=== PATIENT | male | born 1990 | race African-American/Black ===

== ENCOUNTER 2019-12-22 15:49 | Emergency (ER) | payer OTHER, SELFPAY ==
--- NOTE | 2019-12-22 | CT_ITS ---
EXAMINATION: CT ABDOMEN AND PELVIS WITH CONTRAST CLINICAL INFORMATION: Abdominal pain COMPARISON: None TECHNIQUE: Multidetector volumetric images were obtained from the superior aspect of the liver through the pubic symphysis following administration 85 mL of Omnipaque 350 intravenous contrast. Sagittal and coronal reformatted images were obtained on the technologist's workstation. Oral contrast: No This CT examination was performed using dose optimization techniques as appropriate, variously including the following: *Automated exposure control *Adjustment of mA and/or kV according to patient size (this includes techniques or standardized protocols for targeted exams where dose is matched to indication/reason for exam; i.e. extremities or head) *Use of iterative reconstruction technique DLP: 650 mGy-cm FINDINGS: LUNG BASES: The visualized lung bases are unremarkable. LIVER, GALLBLADDER, AND BILIARY TREE: The liver is normal in size, shape, and attenuation. No focal hepatic lesion or biliary ductal dilatation is present. The gallbladder is unremarkable with no evidence of radiopaque gallstones, gallbladder wall thickening, or obvious pericholecystic inflammatory changes. PANCREAS: Unremarkable. SPLEEN: Unremarkable. ADRENAL GLANDS: Unremarkable. KIDNEYS AND URETERS: The kidneys are normal in size, shape, and attenuation. No hydronephrosis, hydroureter, or calculi seen. No perinephric stranding. BLADDER: Unremarkable. GASTROINTESTINAL TRACT: The stomach and small bowel are nondilated. The appendix is not seen but there are no right lower quadrant inflammatory changes. Scattered colonic diverticulosis. No evidence of colitis or diverticulitis. ABDOMINAL WALL: No significant hernia is appreciated. LYMPH NODES: Normal. VASCULAR: Unremarkable. PELVIC VISCERA: The prostate and seminal vesicles are unremarkable. OSSEOUS STRUCTURES: Mild broad-based disc bulge at L5-S1. No acute or suspicious osseous abnormality. IMPRESSION: No acute CT findings.
[2019-12-22 16:32] VITALS: BP 125/74; PULSE 94; RESP 14; TEMP 37; O2SAT 98
[2019-12-22 17:10] VITALS: BP 102/85; PULSE 96; RESP 16; TEMP 37; O2SAT 98; BMI 31.9
--- NOTE | 2019-12-22 18:00 | ED.ABDPAIN ---
HPI - Abdominal Pain General Chief Complaint: Abdominal Pain Stated Complaint: back pain Time Seen by Provider: 12/22/19 17:46 Source: patient Limitations: no limitations History of Present Illness HPI narrative: patient is a 29-year-old male presents today with having abdominal pain mainly over the lower abdomen. There is no bowel urinary incontinence. There is no pain on urination. There is no penile discharge. No fever no chills no coughing or congestion or upper respiratory symptoms. The pain is dull in nature. It has been ongoing for months. There is no specific triggers. Patient denies any change in bowel movements. No vomiting. He rates it as 5/10. nothing really makes it better Related Data Previous Rx's Medication Instructions Recorded ondansetron HCl [Zofran] 4 mg PO Q8H PRN #7 tab 12/22/19 Allergies Allergy/AdvReac Type Severity Reaction Status Date / Time No Known Allergies Allergy Unverified 12/08/19 17:46 Review of Systems Review of Systems Yes all other systems are reviewed and are negative Eyes: Reports as per HPI Reports system reviewed and no additional complaints, except as documented Cardiovascular: Reports as per HPI Respiratory: Reports as per HPI Gastrointestinal: Reports as per HPI Genitourinary: Reports no additional male genitourinary complaints Musculoskeletal: Reports no additional musculoskeletal complaints Skin/Breast: Reports as per HPI Reports system reviewed and no additional complaints, except as documented Physical Exam Vital Signs and I&O and Narrative: Vital Signs and I&O: Vital Signs Temp 98.6 F 12/22/19 17:10 Pulse 78 12/22/19 19:09 Resp 16 12/22/19 19:09 BP 125/78 12/22/19 19:09 Pulse Ox 100 12/22/19 19:09 Intake & Output 12/22/19 12/22/19 12/23/19 06:59 18:59 06:59 Weight 95.254 kg Body Mass Index 31.9 Const: General: cooperative Orientation/consciousness: oriented to person HENMT: Head: Yes normal to inspection Ears: hearing grossly normal bilaterally General nose exam: Normal external nose present Face and sinus: Yes normal facial exam Mouth: Normal oral and palatal mucosa present Eyes: General: appearance normal, both eyes and all related structures Neck: Other: no JVD noted. Neck: Yes normal visual inspection Chest: Chest palpation & inspection: normal inspection of the chest Resp: Effort & Inspection: normal respiratory effort, not labored, no nasal flaring, no paradoxical thoraco-abdom movements and no respiratory distress Auscultation: clear to auscultation bilaterally GI: Inspection: Yes normal to inspection : General: Yes no CVA tenderness Back/Spine/Pelvis: Back: no CVA tenderness Skin: General skin exam: no rashes or lesions noted Neuro: General: oriented to person Extrem: General: Yes normal to inspection Right upper extremity: normal to inspection Left upper extremity: normal to inspection Psych: Appearance: grossly normal MDM - Abdominal Pain MDM Narrative Medical decision making narrative: Patient well appearing. Labs unremarkable. CT scan of the abdomen pelvis showed no evidence of abscess, perforation, obstruction. No evidence for appendicitis. Patient's abdominal exam is soft nontender. Repeat abdominal exam was soft nontender. Will discharge patient home close follow-up on an outpatient basis. Differential Diagnosis Differential diagnosis: Likely aortic dissection, acute appendicitis, bowel perforation, calculus of kidney and constipation Medical Records Attestation: I reviewed the patient's medical records. Lab Data Attestation: I reviewed the patient's lab results. Result diagrams: 12/22/19 18:33 12/22/19 18:33 Labs: Lab Results 12/22/19 12/22/19 12/22/19 Range/Units 18:33 18:33 18:33 WBC 5.2 (4.8-10.8) X10*3/uL RBC 5.40 (4.60-5.80) X10*6/uL Hgb 15.4 (14.0-18.0) g/dl Hct 46.3 (42-52) % MCV 85.7 (80-98) fL MCH 28.5 (27.0-33.0) pg MCHC 33.3 (31.0-36.0) g/dl RDW 12.6 (11.0-16.0) % Plt Count 294 (160-400) X10*3/uL MPV 9.5 (9.4-12.4) fL Immature Gran % (Auto) 0.2 (0.0-0.4) % Neut % (Auto) 43.8 L (45-73) % Lymph % (Auto) 45.7 H (20-40) % [place] % (Auto) 7.2 (2-11) % Eos % (Auto) 2.7 (0-4) % Baso % (Auto) 0.4 (0-2) % Neut # (Auto) 2.3 (2.0-8.3) X10*3/uL Lymph # (Auto) 2.4 (1.2-4.9) X10*3/uL [place] # (Auto) 0.4 (0.1-1.2) X10*3/uL Eos # (Auto) 0.1 (0.0-0.4) X10*3/uL Baso # (Auto) 0.0 (0.0-0.2) X10*3/uL Abs Immat Gran (auto) 0.01 (0.00-0.03) X10*3/uL Absolute Nucleated RBC 0.000 (0.0-0.012) X10*3/uL Nucleated RBC % (auto) 0.0 (0.0-0.2) /100WBC Hold Blue Top SEE NOTE Sodium 140 (135-145) mmol/L Potassium 4.1 (3.3-5.1) mmol/l Chloride 105 (96-108) mmol/L Carbon Dioxide 27 (22-29) mmol/L Anion Gap 12 (12-20) BUN 12 (9-16) mg/dL Creatinine 1.08 (0.5-1.4) mg/dL Estim Creat Clear Calc 111.9 Estimated GFR > 60 Random Glucose 92 (60-115) mg/dL Calcium 9.2 (8.4-10.2) mg/dL Total Bilirubin 0.3 (0.0-1.0) mg/dL Direct Bilirubin (0.0-0.5) mg/dL AST 25 (5-37) U/L ALT 41 H (0-40) U/L Alkaline Phosphatase 107 (39-117) U/L Total Protein 7.5 (6.5-8.0) g/dL Albumin 4.4 (3.5-5.0) g/dL 12/22/19 Range/Units 18:33 WBC (4.8-10.8) X10*3/uL RBC (4.60-5.80) X10*6/uL Hgb (14.0-18.0) g/dl Hct (42-52) % MCV (80-98) fL MCH (27.0-33.0) pg MCHC (31.0-36.0) g/dl RDW (11.0-16.0) % Plt Count (160-400) X10*3/uL MPV (9.4-12.4) fL Immature Gran % (Auto) (0.0-0.4) % Neut % (Auto) (45-73) % Lymph % (Auto) (20-40) % [place] % (Auto) (2-11) % Eos % (Auto) (0-4) % Baso % (Auto) (0-2) % Neut # (Auto) (2.0-8.3) X10*3/uL Lymph # (Auto) (1.2-4.9) X10*3/uL [place] # (Auto) (0.1-1.2) X10*3/uL Eos # (Auto) (0.0-0.4) X10*3/uL Baso # (Auto) (0.0-0.2) X10*3/uL Abs Immat Gran (auto) (0.00-0.03) X10*3/uL Absolute Nucleated RBC (0.0-0.012) X10*3/uL Nucleated RBC % (auto) (0.0-0.2) /100WBC Hold Blue Top Sodium (135-145) mmol/L Potassium (3.3-5.1) mmol/l Chloride (96-108) mmol/L Carbon Dioxide (22-29) mmol/L Anion Gap (12-20) BUN (9-16) mg/dL Creatinine (0.5-1.4) mg/dL Estim Creat Clear Calc Estimated GFR Random Glucose (60-115) mg/dL Calcium (8.4-10.2) mg/dL Total Bilirubin 0.3 (0.0-1.0) mg/dL Direct Bilirubin 0.2 (0.0-0.5) mg/dL AST 24 (5-37) U/L ALT 38 (0-40) U/L Alkaline Phosphatase 105 (39-117) U/L Total Protein 7.5 (6.5-8.0) g/dL Albumin 4.5 (3.5-5.0) g/dL Discharge Plan Discharge Clinical Impression: Abdominal pain Patient Disposition: Home, Self-Care Instructions: Abdominal Pain (ED) Prescriptions: New ondansetron HCl [Zofran] 4 mg tablet 4 mg PO Q8H PRN (Reason: nausea and vomiting) Qty: 7 RF: 0 Referrals: Physician,Nonstaff [Primary Care Provider] - 2 days PMF Past Medical History Medical History (Updated 12/22/19 @ 20:34 by Swathi Bhardwaj MD) No known health problems Social History Social History Alcohol intake: current Alcohol intake frequency: a few times a week Alcohol type: beer Smoking Status: Never smoker Smoked in Last 30 Days: No Use of substances other than those prescribed or required for medical reasons: No Any prior treatment program specific to substance use: No Advance Directives: No Advance Directives Information Provided: No
[2019-12-22 18:38] LABS: MANUAL DIFF FLAG NO
[2019-12-22 18:39] LABS: Basophils Percent Auto 0.4 % (0-2); Eosinophils Absolute Auto 0.1 X10*3/uL (0.0-0.4); Eosinophils Percent Auto 2.7 % (0-4); Hematocrit 46.3 % (42-52); Hemoglobin 15.4 g/dl (14.0-18.0); Imm Gran Abs Auto 0.01 X10*3/uL (0.00-0.03); Imm Gran Pct Auto 0.2 % (0.0-0.4); Lymphocytes Absolute Auto 2.4 X10*3/uL (1.2-4.9); Lymphocytes Percent Auto 45.7 % (20-40); Mean Corpuscular HGB Conc 33.3 g/dl (31.0-36.0); Mean Corpuscular Hemoglobin 28.5 pg (27.0-33.0); Mean Corpuscular Volume 85.7 fL (80-98); Mean Platelet Volume 9.5 fL (9.4-12.4); Monocytes Absolute Auto 0.4 X10*3/uL (0.1-1.2); Monocytes Percent Auto 7.2 % (2-11); Neutrophils Absolute Auto 2.3 X10*3/uL (2.0-8.3); Neutrophils Percent Auto 43.8 % (45-73); Platelet Count 294 X10*3/uL (160-400); Red Cell Distribution Width 12.6 % (11.0-16.0); White Blood Count 5.2 X10*3/uL (4.8-10.8)
[2019-12-22] MEDS: ondansetron HCL 4 MG/2 ML VIAL IVPUSH (18:43)
[2019-12-22] MEDS: Ketorolac Tromethamine 15 MG/ML VIAL IV (18:43)
[2019-12-22] MEDS: 0.9 % Sodium Chloride 1,000 ML 999 ML IVCONT (18:44)
[2019-12-22 19:07] LABS: Alanine Aminotransferase 41 U/L (0-40); Albumin Level 4.4 g/dL (3.5-5.0); Alkaline Phosphatase 107 U/L (39-117); Anion Gap 12 (12-20); Aspartate Amino Transferase 25 U/L (5-37); Bilirubin Total 0.3 mg/dL (0.0-1.0); Blood Urea Nitrogen 12 mg/dL (9-16); Calcium 9.2 mg/dL (8.4-10.2); Carbon Dioxide 27 mmol/L (22-29); Chloride 105 mmol/L (96-108); Creatinine Clr Calc Pharmacy 111.9; Estimated Glomerular Filt Rate > 60; Glucose Random 92 mg/dL (60-115); Potassium 4.1 mmol/l (3.3-5.1); Sodium 140 mmol/L (135-145); Total Protein 7.5 g/dL (6.5-8.0)
[2019-12-22 19:08] LABS: Alanine Aminotransferase 38 U/L (0-40); Albumin Level 4.5 g/dL (3.5-5.0); Alkaline Phosphatase 105 U/L (39-117); Aspartate Amino Transferase 24 U/L (5-37); Bilirubin Direct 0.2 mg/dL (0.0-0.5); Bilirubin Total 0.3 mg/dL (0.0-1.0); Total Protein 7.5 g/dL (6.5-8.0)
[2019-12-22 19:09] VITALS: BP 125/78; PULSE 78; RESP 16; O2SAT 100
[2019-12-22] MEDS: iohexoL 350 MG/ML 100 ML INFUS..BTL IV (19:50)
[2019-12-22 21:04] VITALS: BP 133/96; PULSE 64; RESP 16; TEMP 36.6; O2SAT 99
[2019-12-22 21:35] LABS: Glucose Urine UA NEG (NEG); Leukocyte Esterase Urine NEG (NEG); Nitrite Urine NEG (NEG); PH 5.5 (5.0-8.0); Specific Gravity - Urine <= 1.005 (1.005-1.025); Urine Blood NEG (NEG); Urine Ketones NEG (NEG); Urine Protein NEG (NEG-TRACE)
[2019-12-22 21:37] LABS: Appearance Urine CLEAR; Color Urine YELLOW
== END 2019-12-22 21:40 | disposition home or self-care (01) ==
PROVIDERS: Emergency Provider Emergency Medicine Emergency Medical Services
DX: R10.9 Unspecified abdominal pain (principal)
CPT/HCPCS: 36415; 51798; 74177; 80053; 80076; 81003; 85025; 96361; 96374; 96375; 99284

== ENCOUNTER 2020-10-18 06:28 | Emergency (ER) | payer OTHER, SELFPAY ==
[2020-10-18 07:10] VITALS: BP 129/89; PULSE 83; RESP 16; TEMP 36.4; O2SAT 97
[2020-10-18 07:35] VITALS: BP 137/94; PULSE 83; RESP 18; TEMP 36.8; O2SAT 98; BMI 34.5
--- NOTE | 2020-10-18 07:56 | ED_ITS ---
HPI - Back Pain/Injury General Chief Complaint: Back Pain/Injury Stated Complaint: lower back pain and stomach pain Time Seen by Provider: 10/18/20 07:56 Source: patient Mode of arrival: ambulatory Limitations: no limitations History of Present Illness HPI Narrative: 30-year-old male walked and for evaluation of back pain for 5 days. Five days of bilateral low back pain, radiates to both sides of groin area, pain is worsening with movement and walking, released with rest, no other associated symptoms with back pain, no fever, no chills. Patient also would like to be checked for STDs, patient had sexual intercourse and the condom broke, no penile discharge, no penile lesion. Related Data Previous Rx's Medication Instructions Recorded ondansetron HCl 4 mg tablet 4 mg PO Q8H PRN #7 tab 12/22/19 (Zofran) ibuprofen 600 mg tablet 600 mg PO Q8H PRN #30 tab 10/18/20 Allergies Allergy/AdvReac Type Severity Reaction Status Date / Time No Known Allergies Allergy Verified 12/22/19 21:57 Review of Systems Review of Systems: All other systems are reviewed and are negative Constitutional: Reports as per HPI and Reports no additional constitutional complaints Eyes: Reports as per HPI and Reports no additional eye complaints Reports system reviewed and no additional complaints, except as documented Cardiovascular: Reports as per HPI and Reports no additional cardiovascular complaints Respiratory: Reports as per HPI and Reports no additional respiratory complaints Gastrointestinal: Reports as per HPI and Reports no additional gastrointestinal complaints Genitourinary: Reports no additional female genitourinary complaints Musculoskeletal: Reports no additional musculoskeletal complaints Skin/Breast: Reports system reviewed and no additional complaints, except as docu Psychiatric: Reports no additional psychiatric complaints Endocrine: Reports no additional endocrine complaints Hematologic/Lymphatic: Reports no additional hematologic/lymphatic complaints Allergic/Immunologic: Reports no additional allergic/immunologic complaints Reports system reviewed and no additional complaints, except as documented and Reports Abnormal speech present [facility] Past Medical History Medical History No known health problems Social History Social History Alcohol intake: never Smoked in Last 30 Days: No Use of substances other than those prescribed or required for medical reasons: No Advance Directives: No Advance Directives Information Provided: No Physical Exam Vital Signs: Vital Signs: Last Vital Signs Temp 98.2 F 10/18/20 07:35 Pulse 83 10/18/20 07:35 Resp 18 10/18/20 07:35 BP 137/94 H 10/18/20 07:35 Pulse Ox 98 10/18/20 07:35 Body Mass Index 34.5 Vital signs have been reviewed as appeared to be correct. Blood pressure normal. Heart rate normal. Respiration rate normal. Temperature normal. Oxygen saturation normal. Appearance: Alert. Oriented X3. No acute distress. Head: Normal external exam. Normocephalic. Atraumatic. No Salazar signs noted. No raccoon eyes noted Eyes: PERRLA. EOMI. Conjunctiva and sclera normal. Eyelids normal. ENT: TM's Normal. Pharynx normal. Uvula midline. Moist mucous membranes. No trismus noted. No drooling noted. No muffled voice noted. Neck: Normal inspection. Neck supple. FROM. No adenopathy. Thyroid Normal. No meningeal signs. No neck mass noted. CVS: Normal heart rate and rhythm. Heart sound normal. No murmurs noted. Pulses normal throughout. Respiratory: No respiratory distress. Painless inspiration. Breath sounds normal. No wheezes/rales/rhonchi noted. Chest nontender. No accessory muscle usage noted or decreased air movement noted. Abdomen: Soft and nontender. Bowel sounds normal in all 4 quadrants. No distention noted. No organomegaly noted. No visible injury noted. Back: No CVA tenderness. Full range of motion noted. No step-off, no deformity. Skin: Skin warm and dry. Normal skin color. Normal skin turgor. No rashes/lesions/lacerations noted. Extremities: No lower extremity edema. Extremities exhibit normal range of motion. Extremities nontender. Neuro: Oriented X 3. No motor deficit. No sensory deficit. Reflexes normal. Course Course Course Narrative: Assessment and plan. 30-year-old male came in with low back pain seems to be muscular related pain, there is a concern of STD. NSAIDs for back pain, await for result of STDs and will notify the patient if positive. Discharge Plan Discharge Clinical Impression: Strain of lumbar region Patient Disposition: Home, Self-Care Instructions: Low Back Strain (ED) Prescriptions: New ibuprofen 600 mg tablet 600 mg PO Q8H PRN (Reason: pain) Qty: 30 RF: 0 No Action ondansetron HCl [Zofran] 4 mg tablet 4 mg PO Q8H PRN (Reason: nausea and vomiting) Qty: 7 RF: 0 Referrals: Robert Rodriges MD [Primary Care Provider] - 2 days Stand Alone Forms: Work/School Release
[2020-10-18 08:04] LABS: Glucose Urine UA NEG (NEG); Leukocyte Esterase Urine NEG (NEG); Nitrite Urine NEG (NEG); Specific Gravity - Urine 1.025 (1.005-1.025); Urine Blood NEG (NEG); Urine Ketones NEG (NEG); Urine Protein NEG (NEG-TRACE)
[2020-10-18 08:07] LABS: Appearance Urine CLEAR; Color Urine YELLOW
[2020-10-18 11:16] LABS: CT PCR NOT DETECTED (Not Detect.); NG PCR NOT DETECTED (Not Detect.)
== END 2020-10-18 08:39 | disposition home or self-care (01) ==
PROVIDERS: Emergency Provider Emergency Medicine; PCP Internal Medicine
DX: S39.012A Strain of muscle, fascia and tendon of lower back, initial encounter (principal); X58.XXXA Exposure to other specified factors, initial encounter; Y93.9 Activity, unspecified; Y92.9 Unspecified place or not applicable; Y99.9 Unspecified external cause status; Z20.2 Contact with and (suspected) exposure to infections with a predominantly sexual mode of transmission; Z79.899 Other long term (current) drug therapy
CPT/HCPCS: 81003; 87491; 87591; 99284

== ENCOUNTER 2021-05-19 14:11 | Emergency (ER) | payer OTHER, SELFPAY ==
[2021-05-19 14:58] VITALS: BP 151/93; PULSE 108; RESP 18; TEMP 37.1; O2SAT 96; BMI 33.5
[2021-05-19] MEDS: Acetaminophen 325 MG TABLET 650 MG PO (15:03)
[2021-05-19 16:25] VITALS: BP 156/95; PULSE 99; RESP 18; TEMP 36.8; O2SAT 98
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
== END 2021-05-19 16:52 | disposition home or self-care (01) ==
PROVIDERS: Emergency Provider Emergency Medicine Emergency Medical Services; PCP Internal Medicine
DX: S39.012A Strain of muscle, fascia and tendon of lower back, initial encounter (principal); V43.52XA Car driver injured in collision with other type car in traffic accident, initial encounter; Y93.9 Activity, unspecified; Y92.410 Unspecified street and highway as the place of occurrence of the external cause; Y99.9 Unspecified external cause status; Z79.899 Other long term (current) drug therapy
CPT/HCPCS: 99284

== ENCOUNTER 2023-01-18 14:25 | Emergency (ER) | payer OTHER, SELFPAY ==
--- NOTE | 2023-01-18 14:41 | ECG_ITS ---
Test Reason : L ARM PAIN Blood Pressure : / mmHG Vent. Rate : 081 BPM Atrial Rate : 081 BPM P-R Int : 128 ms QRS Dur : 096 ms QT Int : 354 ms P-R-T Axes : 018 034 004 degrees QTc Int : 411 ms Normal sinus rhythm Nonspecific T wave abnormality Abnormal ECG No previous ECGs available Referred By: Izabela Velazco Electronically Signed By:LELIA GALLEGOS MD
[2023-01-18 14:42] VITALS: BP 136/89; PULSE 89; RESP 19; TEMP 36.6; O2SAT 98; BMI 34.5
--- NOTE | 2023-01-18 14:42 | ED_ITS ---
HPI - General Adult General Chief complaint: Extremity Injury, Upper Stated complaint: l arm pain Related Data Previous Rx's ?Medication ?Instructions ?Recorded ondansetron HCl 4 mg tablet 4 mg PO Q8H PRN nausea and 12/22/19 (Zofran) vomiting #7 tabs ibuprofen 600 mg tablet 600 mg PO Q8H PRN pain #30 tabs 10/18/20 ibuprofen 600 mg tablet 600 mg PO Q6H PRN pain #20 tabs 05/19/21 cyclobenzaprine 10 mg tablet 10 mg PO BEDTIME PRN muscle spasm 05/23/23 #7 tabs naproxen 500 mg tablet 500 mg PO BID PRN pain #14 tabs 05/23/23 Allergies Allergy/AdvReac Type Severity Reaction Status Date / Time No Known Allergies Allergy Verified 01/18/23 14:41 [facility] Past Medical History Medical History No known health problems Social History Social History Alcohol intake: current Alcohol intake frequency: holidays/special occasions only Alcohol type: beer Smoked in Last 30 Days: No Use of substances other than those prescribed or required for medical reasons: No Advance Directives: No Advance Directives Information Provided: No Physical Exam ED Vital Signs: BMI result Body Mass Index 34.5 Course Course Course Narrative: This is an RME: Additional HPI, ROS, PE not included below will be deferred to primary provider. [age] old male presents with atraumatic left upper extremity pain, at times radiates into his neck, reports it has been going on for the past week, unable to tell me what makes it better worse rates pain 12/30. No trauma. Plan labs, EKG. Medical Decision Making Lab Data 01/18/23 15:05 01/18/23 15:05 Labs: Lab Results 01/18/23 Range/Units 15:05 WBC 5.5 (4.8-10.8) X10*3/uL RBC 5.53 (4.60-5.80) X10*6/uL Hgb 15.8 (14.0-18.0) g/dl Hct 45.1 (42.0-52.0) % MCV 81.6 (80.0-98.0) fL MCH 28.6 (27.0-33.0) pg MCHC 35.0 (31.0-36.0) g/dl RDW 12.3 (11.0-16.0) % Plt Count 333 (160-400) X10*3/uL MPV 9.4 (9.4-12.4) fL Immature Gran % (Auto) 0.0 (0.0-0.4) % Neut % (Auto) 46.0 (45-73) % Lymph % (Auto) 41.5 H (20-40) % [place] % (Auto) 6.4 (2-11) % Eos % (Auto) 5.7 H (0-4) % Baso % (Auto) 0.4 (0-2) % Lymph # (Auto) 2.3 (1.2-4.9) X10*3/uL [place] # (Auto) 0.4 (0.1-1.2) X10*3/uL Eos # (Auto) 0.3 (0.0-0.4) X10*3/uL Baso # (Auto) 0.0 (0.0-0.2) X10*3/uL Abs Immat Gran (auto) 0.00 (0.00-0.03) X10*3/uL Absolute Neuts (auto) 2.5 (2.0-8.3) x10*3/uL Absolute Nucleated RBC 0.000 (0.0-0.012) X10*3/uL Nucleated RBC % (auto) 0.0 (0.0-0.2) /100WBC Sodium 141 (135-145) mmol/L Potassium 4.0 (3.3-5.1) mmol/L Chloride 105 (96-108) mmol/L Carbon Dioxide 26 (22-29) mmol/L Anion Gap 14 (12-20) BUN 13 (9-16) mg/dL Creatinine 0.82 (0.5-1.4) mg/dL Estim Creat Clear Calc 144.3 Estimated GFR > 60 Random Glucose 95 (60-115) mg/dL Calcium 10.2 D (8.4-10.2) mg/dL Magnesium 2.1 (1.6-2.6) mg/dL Total Bilirubin 0.4 (0.0-1.0) mg/dL AST 21 (5-37) U/L ALT 31 (0-40) U/L Alkaline Phosphatase 107 (39-117) U/L Troponin I High Sens < 2.7 (<3.5-35.0) ng/L Total Protein 8.5 H (6.5-8.0) g/dL Albumin 4.6 (3.5-5.0) g/dL Discharge Plan Discharge Clinical Impression: Eloped from emergency department Patient Disposition: Left W/O Completing Treatment Prescriptions: No Action ondansetron HCl [Zofran] 4 mg tablet 4 mg PO Q8H PRN (Reason: nausea and vomiting) Qty: 7 0RF ibuprofen 600 mg tablet 600 mg PO Q8H PRN (Reason: pain) Qty: 30 0RF ibuprofen 600 mg tablet 600 mg PO Q6H PRN (Reason: pain) Qty: 20 0RF naproxen 500 mg tablet 500 mg PO BID PRN (Reason: pain) Qty: 14 0RF cyclobenzaprine 10 mg tablet 10 mg PO BEDTIME PRN (Reason: muscle spasm) Qty: 7 0RF Rx Instructions: side effect is drowsiness. Discharge Date/Time: 01/18/23 19:40
[2023-01-18 15:09] LABS: MANUAL DIFF FLAG NO
[2023-01-18 15:10] LABS: Basophils Percent Auto 0.4 % (0-2); Eosinophils Absolute Auto 0.3 X10*3/uL (0.0-0.4); Eosinophils Percent Auto 5.7 % (0-4); Hematocrit 45.1 % (42.0-52.0); Hemoglobin 15.8 g/dl (14.0-18.0); Lymphocytes Absolute Auto 2.3 X10*3/uL (1.2-4.9); Lymphocytes Percent Auto 41.5 % (20-40); Mean Corpuscular Hemoglobin 28.6 pg (27.0-33.0); Mean Corpuscular Volume 81.6 fL (80.0-98.0); Mean Platelet Volume 9.4 fL (9.4-12.4); Monocytes Absolute Auto 0.4 X10*3/uL (0.1-1.2); Monocytes Percent Auto 6.4 % (2-11); Neutrophils Absolute Auto 2.5 x10*3/uL (2.0-8.3); Platelet Count 333 X10*3/uL (160-400); Red Blood Count 5.53 X10*6/uL (4.60-5.80); Red Cell Distribution Width 12.3 % (11.0-16.0); White Blood Count 5.5 X10*3/uL (4.8-10.8)
[2023-01-18 15:25] LABS: Alanine Aminotransferase 31 U/L (0-40); Albumin Level 4.6 g/dL (3.5-5.0); Alkaline Phosphatase 107 U/L (39-117); Anion Gap 14 (12-20); Aspartate Amino Transferase 21 U/L (5-37); Bilirubin Total 0.4 mg/dL (0.0-1.0); Blood Urea Nitrogen 13 mg/dL (9-16); Calcium 10.2 mg/dL (8.4-10.2); Carbon Dioxide 26 mmol/L (22-29); Chloride 105 mmol/L (96-108); Creatinine Clr Calc Pharmacy 144.3; Estimated Glomerular Filt Rate > 60; Glucose Random 95 mg/dL (60-115); Magnesium 2.1 mg/dL (1.6-2.6); Sodium 141 mmol/L (135-145); Total Protein 8.5 g/dL (6.5-8.0)
[2023-01-18 15:32] LABS: Troponin-I High Sensitivity < 2.7 ng/L (<3.5-35.0)
== END 2023-01-18 19:40 | disposition left against medical advice (07) ==
PROVIDERS: Physician Assistant; Emergency Provider Emergency Medicine; PCP Internal Medicine
DX: M79.602 Pain in left arm (principal); R94.31 Abnormal electrocardiogram [ECG] [EKG]; Z79.899 Other long term (current) drug therapy
CPT/HCPCS: 36415; 80053; 83735; 84484; 85025; 93005; 99283

== ENCOUNTER 2023-05-23 13:31 | Emergency (ER) | payer OTHER, SELFPAY ==
--- NOTE | ~2023-05-23 | XR_ITS ---
EXAMINATION: XR HIP, RIGHT CLINICAL INFORMATION: Right hip, femur pain. COMPARISON: None available. TECHNIQUE: Pelvis one view. 2 views of the right hip. FINDINGS: Right hip: Alignment is anatomic. Joint space is maintained. No evidence of acute fracture or dislocation. No abnormal soft tissue calcification is seen. No suspicious soft tissue abnormality identified. Pelvis: Left hip joint space is maintained. Pelvic rings are intact. SI joints and symphysis pubis intact. No acute fractures seen. No abnormal soft tissue calcification. No suspicious findings in the soft tissues. XR/XR hip RT w PEL1V IMPRESSION: No radiographic evidence of acute fracture or dislocation.
--- NOTE | ~2023-05-23 | XR_ITS ---
EXAMINATION: XR LUMBOSACRAL SPINE CLINICAL INFORMATION: Low back pain COMPARISON: None available. TECHNIQUE: Three views of the lumbosacral spine. FINDINGS: Vertebral body alignment is anatomic. Vertebral body heights are maintained. No acute fracture is seen. Disc spaces are maintained. SI joints are intact. No abnormal soft tissue calcification.. XR/XR lumbar spine 2-3V IMPRESSION: No radiographic evidence of acute fracture.
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
[2023-05-23 13:42] VITALS: BP 138/70; PULSE 120; O2SAT 98
[2023-05-23 14:24] VITALS: BP 120/80; PULSE 84; RESP 18; TEMP 37.1; O2SAT 95
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
[2023-05-23] MEDS: Ketorolac Tromethamine 30 MG/ML VIAL IM (17:57)
[2023-05-23 18:07] VITALS: BMI 33.8
[2023-05-23 18:12] VITALS: BP 122/85; PULSE 85; RESP 16; O2SAT 96
--- NOTE | 2023-05-23 19:46 | PC.NURSE ---
this rn assumed care of pt, pt resting in stretcher, no acute distress noted, respirations even and unlabored. no new orders at this time.
[2023-05-23 20:58] VITALS: BP 173/51; PULSE 70; RESP 19; O2SAT 100
== END 2023-05-23 21:16 | disposition home or self-care (01) ==
PROVIDERS: Emergency Provider Emergency Medicine; PCP Internal Medicine
DX: S13.4XXA Sprain of ligaments of cervical spine, initial encounter (principal); V49.88XA Car occupant (driver) (passenger) injured in other specified transport accidents, initial encounter; Y93.89 Activity, other specified; Y92.89 Other specified places as the place of occurrence of the external cause; Y99.9 Unspecified external cause status; R51.9 Headache, unspecified; M54.2 Cervicalgia; M54.50 Low back pain, unspecified
CPT/HCPCS: 70450; 72100; 72125; 73502; 96372; 99284; J1885